=== PATIENT | female | born 1970 | race Caucasian/White ===

== ENCOUNTER 2021-06-07 11:21 | Emergency (ER) | payer OTHER ==
[2021-06-07] MEDS ORDERED: predniSONE 20 MG TAB ONE ×2 (14:16)
[2021-06-07] MEDS ORDERED: Ketorolac Tromethamine 30 MG/ML VIAL ONE (14:17)
[2021-06-07] MEDS ORDERED: Morphine 4 MG/ML VIAL ONE (14:17)
== END 2021-06-07 14:38 | disposition home or self-care (01) ==
LOC: CSHERS 11:21
DX: B02.9 Zoster without complications (principal); J45.909 Unspecified asthma, uncomplicated; F17.210 Nicotine dependence, cigarettes, uncomplicated
CPT/HCPCS: 96372; 99283; J1885; J2270; J7512

== ENCOUNTER 2021-11-20 11:18 | Emergency (ER) | payer OTHER | END 2021-11-20 12:43 | disposition home or self-care (01) | LOC: CSHERS 11:18 | DX: J45.901 Unspecified asthma with (acute) exacerbation (principal); F17.210 Nicotine dependence, cigarettes, uncomplicated | CPT/HCPCS: 99283 ==

== ENCOUNTER 2021-12-09 18:58 | Emergency (ER) | payer OTHER ==
[2021-12-09 19:51] LABS: Hemoglobin 12.9 g/dL (12.0-15.5); Mean Corpuscular HGB CONC 33.4 g/dL (32.0-36.0); Mean Corpuscular Hemoglobin 31.8 pg (27.0-33.0); Mean Corpuscular Volume 95.1 fl (81.6-98.3); Mean Platelet Volume 8.6 fl (7.4-10.4); Platelet Count 367 10x3/uL (150-450); Red Blood Cell (RBC) Count 4.06 10x6/uL (3.90-5.03); White Blood Cell (WBC) Count 14.4 10x3/uL (3.5-10.5)
[2021-12-09] MEDS ORDERED: Dexamethasone 10 MG/ML VIAL ONE (20:00)
[2021-12-09] MEDS ORDERED: Albuterol Sulfate 2.5 mg/3 ml Neb ONE (20:01)
[2021-12-09] MEDS ORDERED: Magnesium 2 GM/50 ML BAG (IN WATER) ONE (20:01)
[2021-12-09 20:07] LABS: ALT (SGPT) 32 U/L (8-55); AST (SGOT) 18 U/L (5-34); Albumin 3.7 g/dL (3.5-5.0); Alkaline Phosphatase 97 U/L (40-110); Anion Gap 16 mmol/L (10-20); BUN (Urea Nitrogen) 21 mg/dL (9.8-20.1); Bilirubin, Total 0.5 mg/dL (0.2-1.2); CK (CPK) 65 U/L (29-168); Calc. Creatinine Clearance 0 mL/min (70-130); Calcium 8.8 mg/dL (7.8-10.44); Carbon Dioxide 22 mmol/L (22-29); Chloride 104 mmol/L (98-107); Globulin 2.5 g/dL (2.4-3.5); Glucose 160 mg/dL (70-105); Lipase 27 U/L (8-78); Potassium 3.8 mmol/L (3.5-5.1); Protein, Total 6.2 g/dL (6.0-8.3); Sodium 138 mmol/L (136-145)
[2021-12-09 20:33] LABS: MDiff Complete? YES; Manual Diff?? YES
[2021-12-09 20:38] LABS: Band 1 % (5-11); Eosinophils 1 % (0-10); Lymphocytes 33 % (21-51); Monocytes 6 % (0-10); Neutrophil 58 % (42-75)
[2021-12-09 20:40] LABS: Platelet Morphology Comment Appears Adequate
[2021-12-09] MEDS ORDERED: Lorazepam 2 MG/ML VIAL ONE (20:49)
[2021-12-09 21:19] LABS: SARS-CoV-2 NAA Rapid Test Not Detected (NotDetected)
== END 2021-12-09 20:57 | disposition home or self-care (01) ==
LOC: CSHERS 18:58
DX: J18.9 Pneumonia, unspecified organism (principal); J45.901 Unspecified asthma with (acute) exacerbation; Z20.822 Contact with and (suspected) exposure to COVID-19; F17.210 Nicotine dependence, cigarettes, uncomplicated
CPT/HCPCS: 36415; 80053; 82550; 83605; 83690; 83880; 84484; 85025; 85379; 87040; 93005; 96365; 96375; J1100; J2060; J3475; J7611; J7620; U0002

== ENCOUNTER 2022-01-11 11:46 | Inpatient (IN) | payer OTHER ==
[2022-01-11 12:19] LABS: Hemoglobin 14.8 g/dL (12.0-15.5); MDiff Complete? YES; Mean Corpuscular HGB CONC 35.2 g/dL (32.0-36.0); Mean Corpuscular Hemoglobin 31.8 pg (27.0-33.0); Mean Corpuscular Volume 90.3 fl (81.6-98.3); Mean Platelet Volume 8.7 fl (7.4-10.4); Platelet Count 316 10x3/uL (150-450); RBC Distribution Width 13.2 % (11.5-14.5); Red Blood Cell (RBC) Count 4.65 10x6/uL (3.90-5.03); White Blood Cell (WBC) Count 20.4 10x3/uL (3.5-10.5)
[2022-01-11] MEDS ORDERED: Ondansetron PF 4 MG/2 ML Vial ONE (12:27)
[2022-01-11] MEDS ORDERED: Morphine 4 MG/ML VIAL ONE (12:27)
[2022-01-11] MEDS ORDERED: cefTRIAXone\\ROCEPHIN 1 GM VIAL ONE (12:27)
[2022-01-11 12:29] LABS: ALT (SGPT) 29 U/L (8-55); AST (SGOT) 25 U/L (5-34); Albumin 3.4 g/dL (3.5-5.0); Alkaline Phosphatase 78 U/L (40-110); Anion Gap 13 mmol/L (10-20); BUN (Urea Nitrogen) 15 mg/dL (9.8-20.1); Bilirubin, Total 1.9 mg/dL (0.2-1.2); Calc. Creatinine Clearance 0 mL/min (70-130); Calcium 8.8 mg/dL (7.8-10.44); Carbon Dioxide 25 mmol/L (22-29); Chloride 99 mmol/L (98-107); Globulin 2.6 g/dL (2.4-3.5); Glucose 168 mg/dL (70-105); Potassium 4.2 mmol/L (3.5-5.1); Sodium 133 mmol/L (136-145)
[2022-01-11 12:42] LABS: Lymphocytes 7 % (21-51); Monocytes 4 % (0-10); Neutrophil 89 % (42-75)
[2022-01-11 12:43] LABS: Platelet Morphology Comment Appears Adequate
[2022-01-11] MEDS ORDERED: Senokot S 8.6-50 MG TAB PO PRN (14:37)
[2022-01-11 15:38] LABS: SARS-CoV-2 NAA Rapid Test Not Detected (NotDetected)
[2022-01-11 15:53] VITALS: BMI 45.7
[2022-01-11] MEDS ORDERED: Vancomycin HCl 750 MG in Sodium Chloride 0.9% 250 ML 250 ML IVPB SCH (17:00)
[2022-01-11] MEDS ORDERED: NS 0.9% w/ 20 MEQ KCL 1,000 ML/1,000 ML BAG IV SCH (17:00)
[2022-01-11] MEDS: Cefepime 1 GM in Sodium Chloride 0.9% 100 ML IVPB SCH (17:04)
[2022-01-11] MEDS: Nicotine 21 MG PATCH TD SCH (17:33)
[2022-01-11] MEDS: HYDROcodone/Acetaminophen 5/325 mg Tablet PO PRN (19:38)
[2022-01-11] MEDS ORDERED: Budesonide 0.5 MG/2 ML NEB NEB SCH (20:15)
[2022-01-11] MEDS ORDERED: Arformoterol 15 MCG/2 ML NEB NEB SCH (20:15)
[2022-01-11] MEDS ORDERED: Vancomycin 1 GM in Premix Bag 1 BAG IVPB SCH (21:00)
[2022-01-11] MEDS: Famotidine 20 MG TAB PO SCH (21:31)
[2022-01-11] MEDS: Acetaminophen 325 MG TAB PO PRN (23:45)
[2022-01-12] MEDS: Acetaminophen 325 MG TAB PO PRN ×3 (04:17→23:53)
[2022-01-12] MEDS: Cefepime 1 GM in Sodium Chloride 0.9% 100 ML IVPB SCH (04:17)
[2022-01-12 04:51] LABS: Hemoglobin 12.4 g/dL (12.0-15.5); Mean Corpuscular HGB CONC 33.7 g/dL (32.0-36.0); Mean Corpuscular Hemoglobin 31.1 pg (27.0-33.0); Mean Corpuscular Volume 92.2 fl (81.6-98.3); Mean Platelet Volume 8.9 fl (7.4-10.4); Platelet Count 248 10x3/uL (150-450); RBC Distribution Width 13.2 % (11.5-14.5); Red Blood Cell (RBC) Count 3.99 10x6/uL (3.90-5.03); White Blood Cell (WBC) Count 28.5 10x3/uL (3.5-10.5)
[2022-01-12 05:01] LABS: Anion Gap 15 mmol/L (10-20); BUN (Urea Nitrogen) 12 mg/dL (9.8-20.1); Calc. Creatinine Clearance 107 mL/min (70-130); Calcium 7.8 mg/dL (7.8-10.44); Carbon Dioxide 22 mmol/L (22-29); Chloride 102 mmol/L (98-107); Glucose 127 mg/dL (70-105); Sodium 135 mmol/L (136-145)
[2022-01-12] MEDS: Vancomycin HCl 1 GM in Sodium Chloride 0.9% 250 ML 250 ML IVPB SCH ×2 (05:35→17:20)
[2022-01-12 06:01] LABS: Band 17 % (5-11); Lymphocytes 11 % (21-51); Monocytes 5 % (0-10); Neutrophil 67 % (42-75)
[2022-01-12 06:03] LABS: MDiff Complete? YES; Platelet Morphology Comment Appears Adequate
[2022-01-12] MEDS: Budesonide 0.5 MG/2 ML NEB NEB SCH ×2 (06:40→19:15)
[2022-01-12] MEDS: Arformoterol 15 MCG/2 ML NEB NEB SCH ×2 (06:50→19:15)
[2022-01-12] MEDS: HYDROcodone/Acetaminophen 5/325 mg Tablet PO PRN (08:59)
[2022-01-12] MEDS: Enoxaparin Sodium 40 MG/0.4 ML SYRINGE SC SCH (09:00)
[2022-01-12] MEDS: Famotidine 20 MG TAB PO SCH ×2 (09:01→20:55)
[2022-01-12] MEDS ORDERED: Iopamidol 300 61% 100 ML VIAL FS ONE (14:38)
[2022-01-12] MEDS: Nicotine 21 MG PATCH TD SCH (17:03)
[2022-01-12] MEDS: Cefepime 2 GM in Sodium Chloride 0.9% 100 ML IVPB SCH (17:03)
[2022-01-13] MEDS: Cefepime 2 GM in Sodium Chloride 0.9% 100 ML IVPB SCH ×2 (04:17→17:13)
[2022-01-13] MEDS: Acetaminophen 325 MG TAB PO PRN ×2 (04:23→17:14)
[2022-01-13 04:38] LABS: Hemoglobin 11.4 g/dL (12.0-15.5); Mean Corpuscular HGB CONC 35.2 g/dL (32.0-36.0); Mean Corpuscular Hemoglobin 32.2 pg (27.0-33.0); Mean Corpuscular Volume 91.5 fl (81.6-98.3); Mean Platelet Volume 9.1 fl (7.4-10.4); Platelet Count 235 10x3/uL (150-450); RBC Distribution Width 13.3 % (11.5-14.5); Red Blood Cell (RBC) Count 3.54 10x6/uL (3.90-5.03); White Blood Cell (WBC) Count 24.9 10x3/uL (3.5-10.5)
[2022-01-13 04:47] LABS: Vancomycin, Trough 11.5 ug/mL
[2022-01-13 04:49] LABS: Anion Gap 14 mmol/L (10-20); BUN (Urea Nitrogen) 12 mg/dL (9.8-20.1); Calc. Creatinine Clearance 128 mL/min (70-130); Calcium 8.4 mg/dL (7.8-10.44); Carbon Dioxide 21 mmol/L (22-29); Chloride 101 mmol/L (98-107); Glucose 121 mg/dL (70-105); Potassium 3.9 mmol/L (3.5-5.1); Sodium 132 mmol/L (136-145)
[2022-01-13 05:01] LABS: MDiff Complete? YES
[2022-01-13 05:07] LABS: Band 12 % (5-11); Eosinophils 2 % (0-10); Lymphocytes 4 % (21-51); Metamyelocyte 1 % (0-0); Monocytes 4 % (0-10); Neutrophil 76 % (42-75); Reactive Lymphocytes 1 % (0-10)
[2022-01-13 05:08] LABS: Platelet Morphology Comment Appears Adequate
[2022-01-13 05:09] LABS: Dohle Bodies SLIGHT
[2022-01-13 05:10] LABS: RBC Morphology Normal
[2022-01-13] MEDS: Vancomycin HCl 1 GM in Sodium Chloride 0.9% 250 ML 250 ML IVPB SCH ×2 (05:32→17:15)
[2022-01-13] MEDS: Budesonide 0.5 MG/2 ML NEB NEB SCH ×2 (07:30→19:30)
[2022-01-13] MEDS: Arformoterol 15 MCG/2 ML NEB NEB SCH ×2 (07:35→19:30)
[2022-01-13] MEDS: Enoxaparin Sodium 40 MG/0.4 ML SYRINGE SC SCH (08:50)
[2022-01-13] MEDS: Famotidine 20 MG TAB PO SCH ×2 (08:50→21:20)
[2022-01-13] MEDS ORDERED: Furosemide 40 MG/4 ML VIAL SLOW IVP SCH (12:00)
[2022-01-13] MEDS: Morphine 2 MG/ML VIAL SLOW IVP PRN ×2 (12:16→17:13)
[2022-01-13] MEDS: metroNIDAZOLE 500 MG in Premix Bag 1 BAG IVPB SCH ×2 (13:16→21:20)
[2022-01-13] MEDS: Nicotine 21 MG PATCH TD SCH (17:14)
[2022-01-14] MEDS: Cefepime 2 GM in Sodium Chloride 0.9% 100 ML IVPB SCH ×2 (04:05→18:26)
[2022-01-14 05:17] LABS: #Basophils 0.1 10x3/uL (0.0-0.2); #Eosinphils 0.4 10x3/uL (0.0-0.5); #Monocytes 0.9 10x3/uL (0.0-1.1); #Neutrophils 11.2 10x3/uL (1.5-8.4); %Basophils 0.4 % (0.0-2.0); %Eosinophils 2.7 % (0.0-6.0); %Lymphocytes 12.6 % (18.0-47.0); %Monocytes 6.2 % (0.0-10.0); %Neutrophils 76.5 % (40.0-75.0); Hemoglobin 11.2 g/dL (12.0-15.5); Mean Corpuscular HGB CONC 33.6 g/dL (32.0-36.0); Mean Corpuscular Hemoglobin 31.1 pg (27.0-33.0); Mean Corpuscular Volume 92.5 fl (81.6-98.3); Mean Platelet Volume 9.3 fl (7.4-10.4); Platelet Count 257 10x3/uL (150-450); RBC Distribution Width 13.5 % (11.5-14.5); White Blood Cell (WBC) Count 14.7 10x3/uL (3.5-10.5)
[2022-01-14] MEDS: Vancomycin HCl 1 GM in Sodium Chloride 0.9% 250 ML 250 ML IVPB SCH ×2 (05:23→19:32)
[2022-01-14 05:25] LABS: Anion Gap 14 mmol/L (10-20); BUN (Urea Nitrogen) 15 mg/dL (9.8-20.1); Calc. Creatinine Clearance 127 mL/min (70-130); Calcium 8.8 mg/dL (7.8-10.44); Carbon Dioxide 25 mmol/L (22-29); Chloride 102 mmol/L (98-107); Glucose 135 mg/dL (70-105); Sodium 137 mmol/L (136-145)
[2022-01-14] MEDS: metroNIDAZOLE 500 MG in Premix Bag 1 BAG IVPB SCH ×3 (07:25→21:57)
[2022-01-14] MEDS: Famotidine 20 MG TAB PO SCH ×2 (08:32→21:57)
[2022-01-14] MEDS: Enoxaparin Sodium 40 MG/0.4 ML SYRINGE SC SCH (08:32)
[2022-01-14] MEDS: HYDROcodone/Acetaminophen 5/325 mg Tablet PO PRN ×2 (13:40→18:26)
[2022-01-14] MEDS: Arformoterol 15 MCG/2 ML NEB NEB SCH ×2 (14:25→18:30)
[2022-01-14 14:26] LABS: Hemoglobin A1c 6.5 % (4.0-6.0)
[2022-01-14] MEDS: Budesonide 0.5 MG/2 ML NEB NEB SCH ×2 (14:28→18:30)
[2022-01-14 16:35] LABS: Vancomycin, Trough 14.9 ug/mL
[2022-01-14] MEDS: Nicotine 21 MG PATCH TD SCH (18:51)
[2022-01-14] MEDS ORDERED: HumaLOG 300 UNITS/3 ML VIAL SC PRN ×2 (19:56)
[2022-01-14] MEDS ORDERED: Dextrose 50% Abboject 50 ML SYRINGE SLOW IVP PRN (19:56)
[2022-01-14] MEDS ORDERED: Dextrose 5% in Water 1,000 ML IV PRN (19:56)
[2022-01-15] MEDS: Acetaminophen 325 MG TAB PO PRN (03:21)
[2022-01-15] MEDS ORDERED: Sodium Chloride 0.9% 250 ML 250 ML ONE (04:02)
[2022-01-15] MEDS: Cefepime 2 GM in Sodium Chloride 0.9% 100 ML IVPB SCH ×2 (04:34→16:15)
[2022-01-15] MEDS: Vancomycin HCl 1 GM in Sodium Chloride 0.9% 250 ML 250 ML IVPB SCH ×2 (05:13→17:32)
[2022-01-15] MEDS: metroNIDAZOLE 500 MG in Premix Bag 1 BAG IVPB SCH ×2 (07:30→15:04)
[2022-01-15] MEDS: Arformoterol 15 MCG/2 ML NEB NEB SCH ×2 (07:39→19:35)
[2022-01-15] MEDS: Budesonide 0.5 MG/2 ML NEB NEB SCH ×2 (07:43→19:45)
[2022-01-15] MEDS: Enoxaparin Sodium 40 MG/0.4 ML SYRINGE SC SCH (09:45)
[2022-01-15] MEDS: Famotidine 20 MG TAB PO SCH ×2 (09:45→22:27)
[2022-01-15 10:35] LABS: Anion Gap 13 mmol/L (10-20); BUN (Urea Nitrogen) 12 mg/dL (9.8-20.1); Calc. Creatinine Clearance 149 mL/min (70-130); Carbon Dioxide 24 mmol/L (22-29); Chloride 103 mmol/L (98-107); Estimated GFR 90; Glucose 106 mg/dL (70-105); Potassium 4.1 mmol/L (3.5-5.1); Sodium 136 mmol/L (136-145)
[2022-01-15] MEDS: HYDROcodone/Acetaminophen 5/325 mg Tablet PO PRN ×3 (13:25→22:31)
[2022-01-15] MEDS: metFORMIN 500 MG TAB PO SCH (16:14)
[2022-01-15] MEDS: Nicotine 21 MG PATCH TD SCH (17:31)
[2022-01-15] MEDS: metroNIDAZOLE 500 MG TAB PO SCH (22:28)
[2022-01-16] MEDS: Cefepime 2 GM in Sodium Chloride 0.9% 100 ML IVPB SCH ×2 (04:25→16:34)
[2022-01-16] MEDS: Vancomycin HCl 1 GM in Sodium Chloride 0.9% 250 ML 250 ML IVPB SCH ×2 (04:25→17:43)
[2022-01-16 04:45] LABS: Hemoglobin 11.4 g/dL (12.0-15.5); Mean Corpuscular Hemoglobin 30.9 pg (27.0-33.0); Mean Corpuscular Volume 93.5 fl (81.6-98.3); Mean Platelet Volume 8.9 fl (7.4-10.4); Platelet Count 337 10x3/uL (150-450); RBC Distribution Width 13.2 % (11.5-14.5); Red Blood Cell (RBC) Count 3.69 10x6/uL (3.90-5.03); White Blood Cell (WBC) Count 12.1 10x3/uL (3.5-10.5)
[2022-01-16 05:00] LABS: MDiff Complete? YES
[2022-01-16 05:01] LABS: Vancomycin, Trough 14.2 ug/mL
[2022-01-16 05:03] LABS: Band 9 % (5-11); Eosinophils 1 % (0-10); Lymphocytes 13 % (21-51); Monocytes 9 % (0-10); Myelocyte 3 % (0-0); Neutrophil 63 % (42-75); Reactive Lymphocytes 2 % (0-10)
[2022-01-16 05:04] LABS: Platelet Morphology Comment Appears Adequate
[2022-01-16 05:05] LABS: RBC Morphology Normal
[2022-01-16 05:11] LABS: Anion Gap 15 mmol/L (10-20); BUN (Urea Nitrogen) 11 mg/dL (9.8-20.1); CRP (Inflammatory) 12.52 mg/dL (= or < 0.5); Calc. Creatinine Clearance 144 mL/min (70-130); Calcium 8.8 mg/dL (7.8-10.44); Carbon Dioxide 25 mmol/L (22-29); Chloride 102 mmol/L (98-107); Estimated GFR 86; Glucose 97 mg/dL (70-105); Potassium 3.9 mmol/L (3.5-5.1); Sodium 138 mmol/L (136-145)
[2022-01-16] MEDS: HYDROcodone/Acetaminophen 5/325 mg Tablet PO PRN ×4 (05:27→20:59)
[2022-01-16] MEDS: metroNIDAZOLE 500 MG TAB PO SCH ×3 (05:35→20:59)
[2022-01-16] MEDS: Arformoterol 15 MCG/2 ML NEB NEB SCH ×2 (07:02→21:15)
[2022-01-16] MEDS: Budesonide 0.5 MG/2 ML NEB NEB SCH ×2 (07:03→21:20)
[2022-01-16] MEDS: Famotidine 20 MG TAB PO SCH ×2 (10:29→20:59)
[2022-01-16] MEDS: Enoxaparin Sodium 40 MG/0.4 ML SYRINGE SC SCH (10:29)
[2022-01-16] MEDS: metFORMIN 500 MG TAB PO SCH ×2 (10:30→17:18)
[2022-01-16] MEDS: Nicotine 21 MG PATCH TD SCH (17:14)
[2022-01-16] MEDS ORDERED: hydrALAZINE 20 MG/ML VIAL SLOW IVP PRN (20:39)
[2022-01-16] MEDS: Ondansetron PF 4 MG/2 ML Vial IVP PRN (22:31)
[2022-01-17] MEDS: Acetaminophen 325 MG TAB PO PRN ×2 (00:51→08:48)
[2022-01-17] MEDS: Cefepime 2 GM in Sodium Chloride 0.9% 100 ML IVPB SCH (04:12)
[2022-01-17] MEDS: Vancomycin HCl 1 GM in Sodium Chloride 0.9% 250 ML 250 ML IVPB SCH (04:13)
[2022-01-17 04:37] LABS: Anion Gap 14 mmol/L (10-20); BUN (Urea Nitrogen) 10 mg/dL (9.8-20.1); Calc. Creatinine Clearance 144 mL/min (70-130); Calcium 8.8 mg/dL (7.8-10.44); Carbon Dioxide 27 mmol/L (22-29); Chloride 101 mmol/L (98-107); Estimated GFR 86; Glucose 104 mg/dL (70-105); Magnesium 2.1 mg/dL (1.6-2.6); Sodium 138 mmol/L (136-145)
[2022-01-17 04:43] LABS: Hemoglobin 11.6 g/dL (12.0-15.5); Mean Corpuscular HGB CONC 33.7 g/dL (32.0-36.0); Mean Corpuscular Hemoglobin 31.6 pg (27.0-33.0); Mean Corpuscular Volume 93.7 fl (81.6-98.3); Platelet Count 360 10x3/uL (150-450); RBC Distribution Width 13.2 % (11.5-14.5); Red Blood Cell (RBC) Count 3.67 10x6/uL (3.90-5.03); White Blood Cell (WBC) Count 12.5 10x3/uL (3.5-10.5)
[2022-01-17] MEDS: metroNIDAZOLE 500 MG TAB PO SCH ×2 (05:07→14:50)
[2022-01-17 06:32] LABS: MDiff Complete? YES
[2022-01-17 06:33] LABS: Platelet Morphology Comment Appears Adequate
[2022-01-17 06:34] LABS: RBC Morphology Normal
[2022-01-17 06:36] LABS: Band 10 % (5-11); Eosinophils 1 % (0-10); Lymphocytes 17 % (21-51); Metamyelocyte 3 % (0-0); Monocytes 8 % (0-10); Neutrophil 61 % (42-75)
[2022-01-17] MEDS: Arformoterol 15 MCG/2 ML NEB NEB SCH (07:00)
[2022-01-17] MEDS: Budesonide 0.5 MG/2 ML NEB NEB SCH (07:00)
[2022-01-17] MEDS: metFORMIN 500 MG TAB PO SCH (08:48)
[2022-01-17] MEDS: Famotidine 20 MG TAB PO SCH (08:48)
[2022-01-17] MEDS: HYDROcodone/Acetaminophen 5/325 mg Tablet PO PRN (08:48)
[2022-01-17] MEDS: Ondansetron PF 4 MG/2 ML Vial IVP PRN (08:48)
[2022-01-17] MEDS: Enoxaparin Sodium 40 MG/0.4 ML SYRINGE SC SCH (09:02)
[2022-01-17 16:22] VITALS: BP 115/70; TEMP 98.2
== END 2022-01-17 17:27 | disposition home or self-care (01) | DRG 872 ==
LOC: CSHERS 11:46 → CSHPP 15:42 → OBSVTOIN 15:42 → CSHTELE 01-14 10:31
PROVIDERS: ADMIT Family Medicine; ATTEND Family Medicine
DX: A41.9 Sepsis, unspecified organism (principal); L03.115 Cellulitis of right lower limb; Z68.42 Body mass index [BMI] 45.0-49.9, adult; E66.01 Morbid (severe) obesity due to excess calories; J45.909 Unspecified asthma, uncomplicated; F17.210 Nicotine dependence, cigarettes, uncomplicated; Z20.822 Contact with and (suspected) exposure to COVID-19; Z88.8 Allergy status to other drugs, medicaments and biological substances; Z79.899 Other long term (current) drug therapy; Z90.710 Acquired absence of both cervix and uterus; Z90.49 Acquired absence of other specified parts of digestive tract
CPT/HCPCS: 36415; 36416; 80048; 80053; 80202; 83036; 83605; 83735; 83880; 85025; 86140; 87040; 87081; 94640; 94760; 96365; 96366; 96367; 96375; J0360; J0692; J0696; J1650; J1940; J2270; J2405; J3370; J3480; J3490; J7050; J7620; J7626; Q9967; U0002

== ENCOUNTER 2022-03-05 10:41 | Outpatient (CLI) | payer OTHER | END 2022-03-05 10:42 | disposition home or self-care (01) | LOC: CSHMAMMO 10:41 | DX: Z12.31 Encounter for screening mammogram for malignant neoplasm of breast (principal) | CPT/HCPCS: 77063; 77067 ==

== ENCOUNTER 2022-10-12 04:23 | Emergency (ER) | payer OTHER ==
[2022-10-12] MEDS ORDERED: Ketorolac Tromethamine 30 MG/ML VIAL ONE (04:47)
[2022-10-12] MEDS ORDERED: Dexamethasone 10 MG/ML VIAL ONE (04:47)
[2022-10-12] MEDS ORDERED: Orphenadrine Citrate 60 MG/2 ML VIAL IM SCH (05:00)
== END 2022-10-12 05:30 | disposition home or self-care (01) ==
LOC: CSHERS 04:23
DX: M54.42 Lumbago with sciatica, left side (principal); J45.909 Unspecified asthma, uncomplicated; Z79.899 Other long term (current) drug therapy; F17.210 Nicotine dependence, cigarettes, uncomplicated
CPT/HCPCS: 96372; 99283; J1100; J1885; J2360

== ENCOUNTER 2024-04-23 10:59 | Emergency (ER) | payer OTHER, SELFPAY ==
[2024-04-23] MEDS ORDERED: methylPREDNISolone Sod Succ/PF 125 MG/2 ML VIAL ONE (11:45)
[2024-04-23] MEDS ORDERED: Magnesium 2 GM/50 ML BAG (IN WATER) ONE (11:46)
[2024-04-23] MEDS ORDERED: Ipratropium/Albuterol 3 ML NEB ONE (11:52)
[2024-04-23 12:28] LABS: ALT (SGPT) 33 U/L (8-55); AST (SGOT) 24 U/L (5-34); Albumin 3.6 g/dL (3.5-5.0); Alkaline Phosphatase 88 U/L (40-110); Anion Gap 14 mmol/L (10-20); BUN (Urea Nitrogen) 13 mg/dL (9.8-20.1); Calc. Creatinine Clearance 0 mL/min (70-130); Calcium 8.8 mg/dL (7.8-10.44); Carbon Dioxide 22 mmol/L (22-29); Chloride 101 mmol/L (98-107); Estimated GFR 73; Globulin 3.3 g/dL (2.4-3.5); Glucose 168 mg/dL (70-105); Magnesium 2.1 mg/dL (1.6-2.6); Potassium 4.1 mmol/L (3.5-5.1); Protein, Total 6.9 g/dL (6.0-8.3); Sodium 133 mmol/L (136-145)
[2024-04-23 12:31] LABS: Troponin I 0.012 ng/mL (< 0.028)
[2024-04-23 12:44] LABS: #Eosinphils 0.33 10x3/uL (0.0-0.5); #Monocytes 0.74 10x3/uL (0.0-1.1); #Neutrophils 8.06 10x3/uL (1.5-8.4); %Basophils 0.8 % (0.0-2.0); %Eosinophils 2.7 % (0.0-6.0); %Lymphocytes 24.3 % (18.0-47.0); %Neutrophils 65.7 % (40.0-75.0); Hematocrit 45.2 % (34.9-44.5); Hemoglobin 15.5 g/dL (12.0-15.5); Mean Corpuscular HGB CONC 34.3 g/dL (32.0-36.0); Mean Corpuscular Hemoglobin 31.6 pg (27.0-33.0); Mean Corpuscular Volume 92.1 fL (81.6-98.3); Mean Platelet Volume 9.6 fL (7.4-10.4); Platelet Count 336 10x3/uL (150-450); RBC Distribution Width 13.2 % (11.5-14.5); Red Blood Cell (RBC) Count 4.91 10x6/uL (3.90-5.03); White Blood Cell (WBC) Count 12.3 10x3/uL (3.5-10.5)
== END 2024-04-23 14:08 | disposition home or self-care (01) ==
LOC: CSHERS 10:59
DX: J44.1 Chronic obstructive pulmonary disease with (acute) exacerbation (principal); J18.9 Pneumonia, unspecified organism; F17.210 Nicotine dependence, cigarettes, uncomplicated; Z55.6 Problems related to health literacy
CPT/HCPCS: 71045; 80053; 83735; 83880; 84484; 85025; 85379; 93005; 94640; 94760; 96365; 96366; 96375; J2919; J3475; J7620